=== PATIENT | female | born 1935 | race Caucasian/White ===

== ENCOUNTER 2016-08-24 18:42 | Emergency (ER) | payer MEDICARE, BC ==
[2016-08-24 19:13] LABS: URINE BILIRUBIN NEGATIVE (NEGATIVE); URINE BLOOD SMALL (NEGATIVE); URINE COLOR YELLOW; URINE GLUCOSE (UA) NEGATIVE (NEGATIVE); URINE KETONE NEGATIVE (NEGATIVE); URINE LEUKOCYTE ESTERASE SMALL (NEGATIVE); URINE NITRITE NEGATIVE (NEGATIVE); URINE PROTEIN NEGATIVE (NEGATIVE); URINE UROBILINOGEN 0.2 E.U./dL (0.20 - 1.00)
[2016-08-24 19:16] LABS: URINE APPEARANCE SL CLOUDY
--- NOTE | 2016-08-24 19:20 | Emergency Department Record ---
History of Present Illness - General Chief complaint: Female Urogenital Problem Stated complaint: UTI Time Seen by Provider: 08/24/16 19:00 Source: Patient Mode of Arrival: Ambulatory Limitations: No limitations - History of Present Illness Initial comments: 81 yo female presents to ED with a CC of urinary frequency and burning with urination. Patient denies fevers, chills, or recent illness. Patient reports similar symptoms previously related to UTI. MD Complaint: Dysuria Onset/Timin -: Hour(s) Radiation: Non-radiating Severity: Mild Severity scale (1-10): 4 Quality: Other Consistency: Constant Worsens with: Urination Associated Symptoms: Denies other symptoms - Related Data Home Medications Medication Instructions Recorded Confirmed Last Taken Levothyroxine Sodium [Synthroid] 1 tab PO DAILY 09/11/14 08/24/16 12/01/15 Sotalol HCl [Sotalol] 0.5 tab PO BID 09/11/14 08/24/16 12/01/15 Amlodipine Besylate [Norvasc] 1 tab PO DAILY 01/28/16 08/24/16 Unknown Losartan Potassium [Cozaar] 25 mg PO DAILY 08/24/16 08/24/16 Unknown Rosuvastatin Calcium [Rosuvastatin 10 mg PO DAILY 08/24/16 08/24/16 Unknown Calcium] Previous Rx's Medication Instructions Recorded Nitrofurantoin Yates [Macrobid] 100 mg PO BID #13 capsule 08/24/16 Phenazopyridine HCl [Pyridium] 200 mg PO TID #5 tab 08/24/16 Allergies Allergy/AdvReac Type Severity Reaction Status Date / Time amoxicillin trihydrate Allergy Unknown PT UNSURE Verified 01/28/16 21:34 [From AUGMENTIN] OF REACTION cephalexin [CEPHALEXIN] Allergy Unknown PT UNSURE Verified 01/28/16 21:34 OF REACTION enalapril [ENALAPRIL] Allergy Unknown PT UNSURE Verified 01/28/16 21:34 OF REACTION ezetimibe [From ZETIA] Allergy Unknown PT UNSURE Verified 01/28/16 21:34 OF REACTION iodine [IODINE] Allergy Unknown PT UNSURE Verified 01/28/16 21:34 OF REACTION meloxicam [From MOBIC] Allergy Unknown PT UNSURE Verified 01/28/16 21:34 OF REACTION ofloxacin [From FLOXIN] Allergy Unknown PT UNSURE Verified 01/28/16 21:34 OF REACTION oxaprozin [From DAYPRO] Allergy Unknown PT UNSURE Verified 01/28/16 21:34 OF REACTION Penicillins [PENICILLINS] Allergy Unknown PT UNSURE Verified 01/28/16 21:34 OF REACTION potassium clavulanate Allergy Unknown PT UNSURE Verified 01/28/16 21:34 [From AUGMENTIN] OF REACTION pravastatin [PRAVASTATIN] Allergy Unknown PT UNSURE Verified 01/28/16 21:34 OF REACTION rosuvastatin [ROSUVASTATIN] Allergy Unknown PT UNSURE Verified 01/28/16 21:34 OF REACTION Sulfa (Sulfonamide Allergy Unknown PT UNSURE Verified 01/28/16 21:34 Antibiotics) OF REACTION [SULFA (SULFONAMIDE ANTIBIOTICS)] nitrofurantoin Allergy PT UNSURE Verified 01/28/16 21:34 [From Macrobid] OF REACTION nitrofurantoin Allergy PT UNSURE Verified 01/28/16 21:34 macrocrystalline OF REACTION [From Macrobid] Travel Screening - Travel/Exposure Within Last 30 Days Have you traveled within the last 30 days?: No - Travel/Exposure Within Last Year Have you traveled outside the [place] in the last year?: No - Additonal Travel Details Have you been exposed to anyone with a communicable illness?: No - Travel Symptoms Symptom Screening: None Review of Systems Constitutional: Denies: Chills, Fever, Malaise, Night sweats Eyes: Denies: Eye discharge, Eye pain ENT: Denies: Dental pain, Ear pain Respiratory: Denies: Cough, Dyspnea Cardiovascular: Denies: Chest pain, Dyspnea on exertion, Palpitations Endocrine: Denies: Fatigue, Heat or cold intolerance Gastrointestinal: Denies: Abdominal pain, Nausea, Vomiting Genitourinary: Reports: Dysuria, Frequency, Urgency. Denies: Hematuria, Incontinence, Retention Musculoskeletal: Denies: Arthralgia, Back pain Skin: Denies: Bruising, Change in color Neurological: Denies: Abnormal gait, Confusion, Headache, Seizure Psychiatric: Denies: Anxiety Hematological/Lymphatic: Denies: Anemia, Blood Clots Past Medical History - SOCIAL HISTORY Smoking Status: Former smoker Alcohol Use: None Drug Use: None - RESPIRATORY Hx Respiratory Disorders: No - CARDIOVASCULAR Hx Cardio Disorders: Yes Hx Hypertension: Yes Hx Irregular Heartbeat: Yes (afib) - NEURO Hx Neuro Disorders: No - GI Hx GI Disorders: No - Hx Genitourinary Disorders: Yes Hx Bladder Problem: Yes Hx Kidney Stones: (only one functioning kidney) Hx UTI: Yes - ENDOCRINE Hx Endocrine Disorders: Yes Hx Thyroid Disease: Yes (Hypothyroid) - MUSCULOSKELETAL Hx Musculoskeletal Disorders: No - PSYCH Hx Psych Problems: No - HEMATOLOGY/ONCOLOGY Hx Hematology/Oncology Disorders: Yes Hx Cancer: Yes (breast (right)) Hx Chemotherapy: No Hx Radiation Therapy: No Family Medical History Any Significant Family History?: No Hx Cancer: Father, Mother Hx Diabetes: Brother/Sister Hx Heart Disease: Brother/Sister Hx HTN: Mother, Brother/Sister Hx Resp Disorders: Brother/Sister Hx Stroke: Mother Physical Exam - General General Appearance: Alert, Oriented x3, Cooperative Limitations: No limitations - Head Head exam: Atraumatic, Normocephalic, Normal inspection Head exam detail: negative: Abrasion, Contusion, Guo's sign, General tenderness, Hematoma, Laceration - Eye Eye exam: Normal appearance. negative: Conjunctival injection, Periorbital swelling, Periorbital tenderness, Scleral icterus - ENT Ear exam: negative: Auricular hematoma, Auricular trauma Nasal Exam: negative: Discharge, Dried blood, Foreign body Mouth exam: negative: Drooling, Laceration, Muffled voice, Tongue elevation - Neck Neck exam: Normal inspection. negative: Meningismus, Tenderness - Respiratory Respiratory exam: Normal lung sounds bilaterally. negative: Respiratory distress, Rhonchi, Stridor - Cardiovascular Cardiovascular Exam: Regular rate, Normal rhythm, Normal heart sounds - GI/Abdominal GI/Abdominal exam: Soft. negative: Rebound, Rigid, Tenderness - Rectal Rectal exam: Deferred - exam: Deferred - Extremities Extremities exam: Normal inspection. negative: Pedal edema, Tenderness - Back Back exam: Denies: CVA tenderness (R), CVA tenderness (L) - Neurological Neurological exam: Alert, Normal gait, Oriented X3 - Psychiatric Psychiatric exam: Normal affect, Normal mood - Skin Skin exam: Normal color. negative: Abrasion Type of lesion: negative: abrasion Course Vital Signs 08/24/16 19:07 Temperature 97.7 F Pulse Rate 69 Respiratory 20 Rate Blood Pressure 171/59 Pulse Ox 97 - Reevaluation(s) Reevaluation #1: 08/24/16 19:39 UA reviewed, 16-20 WBCs, 3+ Bacteria. Will initiate treatment for UTI with Macrobid and Pyridium. Patient has no signs of systemic illness or pyelonephritis, and the patient appears stable for discharge at this time. 08/24/16 19:40 Medical Decision Making - Lab Data Lab Results 08/24/16 Range/Units 19:00 Urine Color Yellow Urine Appearance Sl cloudy Urine pH 5.5 (5.0-8.0) Ur Specific [place] 1.015 (1.002-1.030) Urine Protein Negative (NEGATIVE) Urine Glucose (UA) Negative (NEGATIVE) Urine Ketones Negative (NEGATIVE) Urine Blood Small H (NEGATIVE) Urine Nitrite Negative (NEGATIVE) Urine Bilirubin Negative (NEGATIVE) Urine Urobilinogen 0.2 (0.20 - 1.00) E.U./dL Ur Leukocyte Esterase Small H (NEGATIVE) Disposition Disposition: Discharge Clinical Impression: UTI (urinary tract infection) Qualifiers: Urinary tract infection type: acute cystitis Hematuria presence: with hematuria Qualified Code(s): N30.01 - Acute cystitis with hematuria Disposition: Home, Self-Care Condition: (2) Stable Instructions: Urinary Tract Infection in Women (ED) Additional Instructions: Return to ED if your symptoms worsen or if you have any concerns. Macobid and Pyridium as directed. Follow-up with your family doctor in 3-5 days as directed. Prescriptions: Nitrofurantoin Yates [Macrobid] 100 mg PO BID #13 capsule Phenazopyridine HCl [Pyridium] 200 mg PO TID #5 tab Forms: Patient Portal Access Time of Disposition: 19:23
[2016-08-24] MEDS ORDERED: NITROFURANTOIN MONO 100 MG CAPSULE PO ONE (19:23)
[2016-08-24] MEDS ORDERED: PHENAZOPYRIDINE HCL 95 MG TABLET PO ONE (19:23)
[2016-08-24 19:29] LABS: URINE BACTERIA 3+; URINE EPITHELIAL CELLS 0 - 2 (FEW); URINE WBC 16 - 20 (0-2/hpf)
== END 2016-08-24 19:47 | disposition home or self-care (01) ==
LOC: ER 18:42
DX: N30.01 Acute cystitis with hematuria (principal)
CPT/HCPCS: 81001; 87086; 87205; 99282

== ENCOUNTER 2019-06-30 16:45 | Emergency (ER) | payer MEDICARE, BC ==
[2019-06-30 17:58] LABS: URINE APPEARANCE CLEAR; URINE BILIRUBIN NEGATIVE (NEGATIVE); URINE BLOOD MODERATE (NEGATIVE); URINE COLOR YELLOW; URINE GLUCOSE (UA) NEGATIVE (NEGATIVE); URINE KETONE NEGATIVE (NEGATIVE); URINE LEUKOCYTE ESTERASE TRACE (NEGATIVE); URINE NITRITE NEGATIVE (NEGATIVE); URINE PROTEIN NEGATIVE (NEGATIVE); URINE UROBILINOGEN 0.2 E.U./dL (0.20 - 1.00)
--- NOTE | 2019-06-30 18:01 | Emergency Department Record ---
History of Present Illness - General Chief complaint: Female Urogenital Problem Stated complaint: UTI Time Seen by Provider: 06/30/19 17:17 Source: Patient Mode of Arrival: Ambulatory Limitations: No limitations - History of Present Illness Initial comments: 84 yo female presents to ED for evaluation of dysuria symptoms which began this morning, reports similar symptoms related to previous urinary tract infections. Patient denies fevers, chills, abdominal pain, nausea, vomiting, or flank pain symptoms. Patient denies dizziness or weakness symptoms on examination. MD Complaint: Dysuria Onset/Timin -: Days(s) Radiation: Non-radiating Severity: Moderate Quality: Aching Consistency: Intermittent Improves with: None Worsens with: Urination Associated Symptoms: Denies other symptoms - Related Data Home Medications Medication Instructions Recorded Confirmed Last Taken Acetaminophen 650 mg PO Q6H 06/30/19 06/30/19 Unknown Diltiazem HCl [Diltiazem ER] 300 mg PO DAILY 06/30/19 06/30/19 Unknown Estrogens, Conjugated [Premarin] 42.5 gm VG ASDIR 06/30/19 06/30/19 Unknown Previous Rx's Medication Instructions Recorded Nitrofurantoin Frontier [Macrobid] 100 mg PO BID #13 capsule 06/30/19 Allergies Allergy/AdvReac Type Severity Reaction Status Date / Time amoxicillin trihydrate Allergy Unknown PT UNSURE Verified 05/02/19 10:30 [From AUGMENTIN] OF REACTION cephalexin [CEPHALEXIN] Allergy Unknown PT UNSURE Verified 05/02/19 10:30 OF REACTION enalapril [ENALAPRIL] Allergy Unknown PT UNSURE Verified 05/02/19 10:30 OF REACTION ezetimibe [From ZETIA] Allergy Unknown PT UNSURE Verified 05/02/19 10:30 OF REACTION iodine [IODINE] Allergy Unknown PT UNSURE Verified 05/02/19 10:30 OF REACTION meloxicam [From MOBIC] Allergy Unknown PT UNSURE Verified 05/02/19 10:30 OF REACTION ofloxacin [From FLOXIN] Allergy Unknown PT UNSURE Verified 05/02/19 10:30 OF REACTION oxaprozin [From DAYPRO] Allergy Unknown PT UNSURE Verified 05/02/19 10:30 OF REACTION Penicillins [PENICILLINS] Allergy Unknown PT UNSURE Verified 05/02/19 10:30 OF REACTION potassium clavulanate Allergy Unknown PT UNSURE Verified 05/02/19 10:30 [From AUGMENTIN] OF REACTION pravastatin [PRAVASTATIN] Allergy Unknown PT UNSURE Verified 05/02/19 10:30 OF REACTION rosuvastatin [ROSUVASTATIN] Allergy Unknown PT UNSURE Verified 05/02/19 10:30 OF REACTION Sulfa (Sulfonamide Allergy Unknown PT UNSURE Verified 05/02/19 10:30 Antibiotics) OF REACTION [SULFA (SULFONAMIDE ANTIBIOTICS)] Travel Screening - Travel/Exposure Within Last 30 Days Have you traveled within the last 30 days?: No - Travel/Exposure Within Last Year Have you traveled outside the [place] in the last year?: No - Additonal Travel Details Have you been exposed to anyone with a communicable illness?: No - Travel Symptoms Symptom Screening: None Review of Systems Constitutional: Denies: Chills, Fever, Malaise, Night sweats Eyes: Denies: Eye discharge, Eye pain ENT: Denies: Congestion, Ear pain, Epistaxis Respiratory: Denies: Cough, Dyspnea Cardiovascular: Denies: Chest pain, Dyspnea on exertion Endocrine: Denies: Fatigue, Heat or cold intolerance Gastrointestinal: Denies: Abdominal pain, Nausea, Vomiting Genitourinary: Reports: Dysuria. Denies: Incontinence, Retention Musculoskeletal: Denies: Arthralgia, Back pain Skin: Denies: Bruising, Change in color Neurological: Denies: Abnormal gait, Confusion, Headache, Tingling, Tremors Psychiatric: Denies: Anxiety Hematological/Lymphatic: Denies: Anemia, Blood Clots Past Medical History - SOCIAL HISTORY Smoking Status: Former smoker Alcohol Use: None Drug Use: None - RESPIRATORY Hx Respiratory Disorders: No - CARDIOVASCULAR Hx Cardio Disorders: Yes Hx Hypertension: Yes Hx Irregular Heartbeat: Yes (afib) - NEURO Hx Neuro Disorders: No - GI Hx GI Disorders: No - Hx Genitourinary Disorders: Yes Hx Bladder Problem: Yes Hx Kidney Stones: (only one functioning kidney) Hx UTI: Yes - ENDOCRINE Hx Endocrine Disorders: Yes Hx Thyroid Disease: Yes (Hypothyroid) - MUSCULOSKELETAL Hx Musculoskeletal Disorders: No - PSYCH Hx Psych Problems: No - HEMATOLOGY/ONCOLOGY Hx Hematology/Oncology Disorders: Yes Hx Cancer: Yes (breast (right)) Hx Chemotherapy: No Hx Radiation Therapy: No Family Medical History Any Significant Family History?: No Hx Cancer: Father, Mother Hx Diabetes: Brother/Sister Hx Heart Disease: Brother/Sister Hx HTN: Mother, Brother/Sister Hx Resp Disorders: Brother/Sister Hx Stroke: Mother Physical Exam - General General Appearance: Alert, Oriented x3, Cooperative, No acute distress Limitations: No limitations - Head Head exam: Atraumatic, Normocephalic, Normal inspection Head exam detail: negative: Abrasion, Contusion, Guo's sign, General tenderness, Hematoma, Laceration - Eye Eye exam: Normal appearance. negative: Conjunctival injection, Periorbital swelling, Periorbital tenderness, Scleral icterus - ENT Ear exam: negative: Auricular hematoma, Auricular trauma Nasal Exam: negative: Active bleeding, Discharge, Dried blood, Foreign body Mouth exam: negative: Drooling, Laceration, Muffled voice, Tongue elevation - Neck Neck exam: Normal inspection. negative: Meningismus, Tenderness - Respiratory Respiratory exam: Normal lung sounds bilaterally. negative: Respiratory distress, Rhonchi, Stridor, Wheezes - Cardiovascular Cardiovascular Exam: Regular rate, Normal rhythm, Normal heart sounds - GI/Abdominal GI/Abdominal exam: Soft. negative: Distended, Rebound, Rigid, Tenderness - Rectal Rectal exam: Deferred - exam: Deferred - Extremities Extremities exam: Normal inspection. negative: Pedal edema, Tenderness - Back Back exam: Denies: CVA tenderness (R), CVA tenderness (L) - Neurological Neurological exam: Alert, Normal gait, Oriented X3 - Psychiatric Psychiatric exam: Normal affect, Normal mood - Skin Skin exam: Normal color. negative: Abrasion Type of lesion: negative: abrasion Course Vital Signs 06/30/19 06/30/19 17:00 17:55 Temperature 98.1 F Pulse Rate 80 Respiratory 16 Rate Blood Pressure 149/82 Pulse Ox 97 - Reevaluation(s) Reevaluation #1: 06/30/19 18:16 UA was reviewed: 0-2 RBCs 10-15 WBCs 2+ Bacteria 0-2 Epithelial cells Patient was updated on all results, reports Macrobid has improved her symptoms previously. Will treat with Macobid as directed. Patient appears stable for discharge at this time. Disposition Disposition: Discharge Clinical Impression: Acute cystitis Qualifiers: Hematuria presence: with hematuria Qualified Code(s): N30.01 - Acute cystitis with hematuria Disposition: Home, Self-Care Condition: (2) Stable Instructions: Urinary Tract Infection in Women (ED) Additional Instructions: Return to ED if your symptoms worsen or if you have any concerns. Macrobid as directed. Follow-up with your family doctor in 3-5 days as directed. Prescriptions: Nitrofurantoin Frontier [Macrobid] 100 mg PO BID #13 capsule Forms: Patient Portal Access Time of Disposition: 18:16 Quality - Quality Measures Quality Measures: N/A - Blood Pressure Screening Does Patient Have Any of the Following: No Blood Pressure Classification: Pre-Hypertensive BP Reading Systolic Measurement: 149 Diastolic Measurement: 82 Screening for High Blood Pressure: < Pre-Hypertensive BP, F/U Documented > [[id number]] Pre-Hypertensive Follow-up Interventions: Referral to alternative/primary care provider.
[2019-06-30 18:14] LABS: URINE BACTERIA 2+; URINE EPITHELIAL CELLS 0 - 2 (FEW); URINE RBC 0 - 2 (NONE SEEN)
[2019-06-30] MEDS ORDERED: NITROFURANTOIN MONO 100 MG CAPSULE PO ONE (18:16)
== END 2019-06-30 18:26 | disposition home or self-care (01) ==
LOC: ER 16:45
DX: N30.01 Acute cystitis with hematuria (principal)
CPT/HCPCS: 81001; 99283